=== PATIENT | female | born 1975 | race Caucasian/White ===

== ENCOUNTER 2016-11-07 15:04 | Emergency (ER) | payer BC ==
[~2016-11-07] VITALS: Ht 165.1 cm; Wt 110.6 kg
[2016-11-07 15:10] VITALS: TEMP 36.8
[2016-11-07] MEDS ORDERED: ALBUT/IPRATROP 3MG/0.5MG NEB 3 ML VIAL INH STA (15:30)
[2016-11-07 15:33] VITALS: Ht 165.1 cm; Wt 110.6 kg
[2016-11-07 15:46] VITALS: O2SAT 98
[2016-11-07] MEDS ORDERED: CETI10TA84 PO (15:49)
[2016-11-07] MEDS ORDERED: EMPA1TAB PO (15:49)
[2016-11-07] MEDS ORDERED: [UNRECOGNIZED DRUG - OTHER] PO (15:49)
[2016-11-07] MEDS ORDERED: ALBU18002 INH (15:49)
[2016-11-07] MEDS ORDERED: MONT1TAB5 PO (15:49)
[2016-11-07] MEDS ORDERED: SITA1TAB21 PO (15:49)
[2016-11-07] MEDS ORDERED: FENO145T26 PO (15:49)
[2016-11-07] MEDS ORDERED: Juice Plus Fruit PO (15:49)
[2016-11-07] MEDS ORDERED: ASPI81TA28 PO (15:49)
[2016-11-07 15:58] LABS: BASO % 0.4 %; BASO ABS # 0.03 K/uL (0-0.2); COMPLETE YES; EOS % 3.1 %; IG% 0.1 %; LYMPH % 28.9 %; LYMPH ABS # 2.08 K/uL (1.2-3.4); MEAN CELL VOLUME 82.7 fL (80-100); MEAN CORPUSCULAR HEMOGLOBIN 26.9 pg (25-34); MEAN CORPUSCULAR HGB CONC 32.6 g/dl (32-36); MEAN PLATELET VOLUME 10.4 fL (7.4-10.4); MONO % 7.6 %; NEUT % 59.9 %; PLATELET COUNT 355 K/uL (130-400)
--- NOTE | 2016-11-07 16:10 | DIAGNOSTIC IMAGING REPORT ---
CHEST ONE VIEW PORTABLE CLINICAL HISTORY: Respiratory distress. Dyspnea. COMPARISON STUDY: No previous studies for comparison. FINDINGS: Lung volumes are normal. There is no pneumothorax or pleural effusion. There is mild enlargement of the cardiac silhouette. A few surgical clips project over the aortic knob. There is no evidence of pulmonary edema. There is no consolidation. IMPRESSION: 1. No acute cardiopulmonary findings. 2. Mild enlargement of the cardiac silhouette. No evidence of pulmonary edema. Electronically signed by: Kyle Clark M.D. 11/07/2016 4:09 PM Dictated Date/Time: 11/07/2016 4:08 PM
[2016-11-07 16:15] LABS: ALT/SGPT 25 U/L (12-78); BLOOD UREA NITROGEN 12 mg/dl (7-18); BUN/CREATININE RATIO 13.5 (10-20); CALCIUM 10.1 mg/dl (8.5-10.1); CARBON DIOXIDE 26 mmol/L (21-32); CHLORIDE 105 mmol/L (98-107); CREATININE 0.88 mg/dl (0.60-1.20); GLUCOSE 98 mg/dl (70-99); POTASSIUM 3.7 mmol/L (3.5-5.1); SODIUM 138 mmol/L (136-145)
[2016-11-07 16:19] LABS: ALKALINE PHOSPHATASE 62 U/L (45-117); AST/SGOT 9 U/L (15-37)
[2016-11-07 16:36] LABS: URINE APPEARANCE CLEAR (CLEAR); URINE BILIRUBIN NEG (NEG); URINE COLOR YELLOW; URINE NITRITE NEG (NEG); URINE PH 7.5 (4.5-7.5); URINE SPECIFIC GRAVITY 1.025 (1.000-1.030); UROBILINOGEN NEG (NEG)
[2016-11-07 16:45] LABS: MANUAL MICROSCOPIC REQUIRED? NO; REVIEW REQ? NO
[2016-11-07] MEDS ORDERED: ALBUTEROL 0.083% NEBU SOLN 3 ML VIAL INH STA (17:36)
[2016-11-07] MEDS ORDERED: METHYLPREDNISOLONE 125 MG VIAL IV STA (17:36)
[2016-11-07] MEDS ORDERED: PRED20TA PO (19:14)
[2016-11-07 19:17] VITALS: BP 127/72; PULSE 89; O2SAT 97
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
== END 2016-11-07 19:23 | disposition home or self-care (01) ==
LOC: C.EDB 15:09
DX: R06.02 Shortness of breath (principal); J45.909 Unspecified asthma, uncomplicated; E11.9 Type 2 diabetes mellitus without complications; F17.210 Nicotine dependence, cigarettes, uncomplicated; Z79.82 Long term (current) use of aspirin; Z79.899 Other long term (current) drug therapy